=== PATIENT | male | born 1965 | race Caucasian/White ===

== ENCOUNTER 2022-07-05 22:16 | Inpatient (IN) | payer BC ==
[2022-07-06] MEDS ORDERED: Dexamethasone 10 MG/ML VIAL ONE (01:21)
[2022-07-06] MEDS ORDERED: Ondansetron PF 4 MG/2 ML Vial IVP PRN (01:57)
[2022-07-06] MEDS ORDERED: HYDROcodone/Acetaminophen 5/325 mg Tablet PO PRN (01:57)
[2022-07-06] MEDS ORDERED: Acetaminophen 325 MG TAB PO PRN (01:57)
[2022-07-06] MEDS ORDERED: Senokot S 8.6-50 MG TAB PO PRN (01:57)
[2022-07-06] MEDS ORDERED: hydrALAZINE 20 MG/ML VIAL SLOW IVP PRN (02:58)
[2022-07-06 03:30] VITALS: BMI 38.5
[2022-07-06 06:31] LABS: #Lymphocytes 1.5 thou/uL (1.20-3.40); #Monocytes 0.2 thou/uL (0.11-0.59); #Neutrophils 8.5 thou/uL (1.40-6.50); %Basophils 0.2 % (0.0-1.0); %Eosinophils 0.4 % (0.0-10.0); %Lymphocytes 14.3 % (21.0-51.0); %Monocytes 1.6 % (0.0-10.0); %Neutrophils 83.5 % (42.0-75.0); Hemoglobin 16.1 g/dL (14.0-18.0); Mean Corpuscular HGB CONC 32.9 g/dL (32.0-36.0); Mean Corpuscular Hemoglobin 28.8 pg (27.0-31.0); Mean Corpuscular Volume 87.7 fL (78.0-98.0); Mean Platelet Volume 7.6 fL (7.4-10.4); Platelet Count 210 thou/uL (130-400); RBC Distribution Width 12.4 % (11.5-14.5); Red Blood Cell (RBC) Count 5.59 mill/uL (4.70-6.10); White Blood Cell (WBC) Count 10.1 thou/uL (4.8-10.8)
[2022-07-06 06:45] LABS: ALT (SGPT) 18 U/L (8-55); AST (SGOT) 19 U/L (5-34); Alkaline Phosphatase 84 U/L (40-110); Anion Gap 12 mmol/L (10-20); BUN (Urea Nitrogen) 24 mg/dL (8.4-25.7); Bilirubin, Total 1.1 mg/dL (0.2-1.2); Calc. Creatinine Clearance 115 mL/min (70-130); Calcium 9.1 mg/dL (7.8-10.44); Carbon Dioxide 26 mmol/L (22-29); Chloride 100 mmol/L (98-107); Estimated GFR 61; Globulin 3.2 g/dL (2.4-3.5); Glucose 253 mg/dL (70-105); Potassium 4.2 mmol/L (3.5-5.1); Protein, Total 7.2 g/dL (6.0-8.3); Sodium 134 mmol/L (136-145)
[2022-07-06] MEDS: Dexamethasone 10 MG/ML VIAL SLOW IVP SCH ×2 (07:45→13:12)
[2022-07-06] MEDS ORDERED: CEFAZOLIN 2 GM in Sodium Chloride 0.9% 100 ML IVPB SCH (08:30)
[2022-07-06 09:33] LABS: PTT 27.6 sec (22.9-36.1)
[2022-07-06] MEDS ORDERED: Thrombin 5000 UNITS/5 ML VIAL ONE (12:31)
[2022-07-06] MEDS ORDERED: EPINEPHrine 1 MG/ML AMP ONE (12:31)
[2022-07-06] MEDS ORDERED: Bupivacaine PF 0.5% 30 ML VIAL ONE (12:31)
[2022-07-06] MEDS ORDERED: Neomycin-Polymyxin 1 ML AMP ONE (12:31)
[2022-07-06] MEDS ORDERED: Morphine 2 MG/ML VIAL ONE (12:34)
[2022-07-06] MEDS ORDERED: Sodium Chloride 0.9% 0 ML ONE (12:34)
[2022-07-06] MEDS ORDERED: Sodium Chloride 0.9% 100 ML ONE (12:34)
[2022-07-06] MEDS ORDERED: CEFAZOLIN 2 GM VIAL ONE (12:34)
[2022-07-06] MEDS ORDERED: fentaNYL Citrate/PF 100 MCG/2 ML SYRINGE ONE (12:48)
[2022-07-06] MEDS ORDERED: Famotidine/PF 20 mg/2ml Vial ONE (12:48)
[2022-07-06] MEDS ORDERED: SUGAMMADEX SODIUM 200 MG/2 ML VIAL ONE ×2 (12:48→15:28)
[2022-07-06] MEDS ORDERED: Lidocaine 1% PF 5 ML VIAL ONE (13:19)
[2022-07-06] MEDS ORDERED: Rocuronium Bromide 10 MG/ML (10ML VIAL) ONE (13:19)
[2022-07-06] MEDS ORDERED: Metoclopramide HCl 10 MG/2 ML VIAL ONE (13:19)
[2022-07-06] MEDS ORDERED: PROPOFOL 200 MG/20 ML VIAL ONE (13:19)
[2022-07-06] MEDS ORDERED: PHENYLEPHRINE-NS 100 MCG/ML 10 ML SYRINGE ONE (13:19)
[2022-07-06] MEDS ORDERED: Dexamethasone 20 MG/5 ML VIAL ONE (13:19)
[2022-07-06] MEDS ORDERED: Ketorolac Tromethamine 30 MG/ML VIAL ONE (13:19)
[2022-07-06] MEDS ORDERED: Ondansetron PF 4 MG/2 ML Vial ONE (13:19)
[2022-07-06] MEDS ORDERED: Rocuronium Bromide 50 MG/5 ML VIAL ONE (15:28)
[2022-07-06] MEDS ORDERED: Albumin 5% 0 ML ONE (15:48)
[2022-07-06] MEDS ORDERED: Albumin 5% 500 ML ONE (15:48)
[2022-07-06] MEDS ORDERED: HYDROmorphone 2 MG/ML VIAL ONE (16:31)
[2022-07-06] MEDS ORDERED: Milk Of Magnesia 30 ML UDCUP PO PRN (16:54)
[2022-07-06] MEDS ORDERED: Acetaminophen/Codeine 30-300mg Tablet PO PRN (16:54)
[2022-07-06] MEDS ORDERED: Cyclobenzaprine 10 MG TAB PO PRN (16:54)
[2022-07-06] MEDS ORDERED: Morphine 2 MG/ML VIAL SLOW IVP PRN (16:54)
[2022-07-06] MEDS ORDERED: diphenhydrAMINE 50 MG/ML VIAL IVP PRN (16:54)
[2022-07-06] MEDS ORDERED: HYDROcodone/Acetaminophen 7.5/325 mg Tablet PO PRN (16:54)
[2022-07-06] MEDS ORDERED: Bisacodyl 10 MG SUPP PR PRN (16:54)
[2022-07-06] MEDS ORDERED: Ondansetron HCl/PF 4 MG/2 ML Vial IVP PRN (17:00)
[2022-07-06] MEDS ORDERED: Promethazine HCl 25 MG/ML VIAL IVPB PRN (17:00)
[2022-07-06] MEDS ORDERED: HYDROmorphone 2 MG/ML VIAL SLOW IVP PRN (17:00)
[2022-07-06] MEDS ORDERED: Promethazine HCl 25 MG/ML VIAL IM PRN (17:00)
[2022-07-06] MEDS ORDERED: Tamsulosin HCl 0.4 MG CAP PO SCH (18:00)
[2022-07-06] MEDS: Sodium Chloride 0.9% 1,000 ML IV SCH (18:16)
[2022-07-06] MEDS: Dexamethasone 4 MG TAB PO SCH (19:55)
[2022-07-06] MEDS: CEFAZOLIN 2 GM in Sodium Chloride 0.9% 100 ML IVPB SCH (21:37)
[2022-07-06] MEDS: HYDROcodone/Acetaminophen 10/325 mg Tablet PO PRN (22:25)
[2022-07-07] MEDS: Sodium Chloride 0.9% 1,000 ML IV SCH ×2 (04:34→20:04)
[2022-07-07] MEDS: CEFAZOLIN 2 GM in Sodium Chloride 0.9% 100 ML IVPB SCH (05:00)
[2022-07-07] MEDS: Tamsulosin HCl 0.4 MG CAP PO SCH (05:00)
[2022-07-07] MEDS: HYDROcodone/Acetaminophen 10/325 mg Tablet PO PRN ×2 (05:00→09:30)
[2022-07-07] MEDS: Dexamethasone 4 MG TAB PO SCH ×4 (08:39→20:15)
[2022-07-07 10:53] LABS: Anion Gap 16 mmol/L (10-20); BUN (Urea Nitrogen) 31 mg/dL (8.4-25.7); Calc. Creatinine Clearance 96 mL/min (70-130); Calcium 8.5 mg/dL (7.8-10.44); Carbon Dioxide 23 mmol/L (22-29); Chloride 98 mmol/L (98-107); Estimated GFR 49; Glucose 413 mg/dL (70-105); Sodium 133 mmol/L (136-145)
[2022-07-08] MEDS: HYDROcodone/Acetaminophen 10/325 mg Tablet PO PRN (05:57)
[2022-07-08] MEDS: Tamsulosin HCl 0.4 MG CAP PO SCH (05:57)
[2022-07-08 06:24] LABS: Anion Gap 14 mmol/L (10-20); BUN (Urea Nitrogen) 23 mg/dL (8.4-25.7); Calc. Creatinine Clearance 131 mL/min (70-130); Calcium 8.5 mg/dL (7.8-10.44); Carbon Dioxide 25 mmol/L (22-29); Chloride 103 mmol/L (98-107); Estimated GFR 72; Glucose 292 mg/dL (70-105); Potassium 4.7 mmol/L (3.5-5.1); Sodium 137 mmol/L (136-145)
[2022-07-08] MEDS: Dexamethasone 4 MG TAB PO SCH ×3 (09:51→17:06)
[2022-07-08] MEDS ORDERED: Amlodipine 10 MG TAB PO SCH (12:30)
[2022-07-08 12:49] VITALS: BP 127/67; TEMP 97.7
[2022-07-08] MEDS: Sodium Chloride 0.9% 1,000 ML IV SCH (13:02)
[2022-07-09] MEDS ORDERED: Dexamethasone 1 MG TAB PO SCH (09:00)
[2022-07-09] MEDS ORDERED: Amlodipine 10 MG TAB PO SCH (09:00)
[2022-07-11] MEDS ORDERED: Dexamethasone 1 MG TAB PO SCH (09:00)
[2022-07-13] MEDS ORDERED: Dexamethasone 1 MG TAB PO SCH (09:00)
[2022-07-14] MEDS ORDERED: Dexamethasone 1 MG TAB PO SCH (09:00)
== END 2022-07-08 20:20 | DRG 516 ==
LOC: ERS 22:16 → INTOOBSV 07-06 02:00 → MSONC 07-06 02:00 → OBSVTOIN 07-08 15:31
PROVIDERS: ADMIT Student in an Organized Health Care Education/Training Program; ATTEND Internal Medicine
PROC: 01NB0ZZ Release Lumbar Nerve, Open Approach (ICD-10-PCS; principal; 2022-07-06)
DX: M48.061 Spinal stenosis, lumbar region without neurogenic claudication (principal); N17.9 Acute kidney failure, unspecified; M51.16 Intervertebral disc disorders with radiculopathy, lumbar region; M21.372 Foot drop, left foot; E66.9 Obesity, unspecified; I10 Essential (primary) hypertension; M21.371 Foot drop, right foot; Z88.1 Allergy status to other antibiotic agents; Z68.38 Body mass index [BMI] 38.0-38.9, adult; Z98.890 Other specified postprocedural states; Z79.899 Other long term (current) drug therapy; Z20.822 Contact with and (suspected) exposure to COVID-19
CPT/HCPCS: 36415; 76000; 80048; 80053; 85025; 85610; 85730; 96374; 96376; G0378; J0171; J0690; J1100; J1170; J1885; J2270; J2405; J2704; J2765; J3370; J3490; J7050; J8540; P9045; S0020; S0028; U0003; U0005